=== PATIENT | male | born 1955 | race Caucasian/White ===

== ENCOUNTER 2023-04-16 10:45 | Emergency (ER) | payer MEDICARE, BC ==
[2023-04-16] MEDS ORDERED: Proparacaine 0.5% Opth 15 ML BOT ONE (11:30)
[2023-04-16] MEDS ORDERED: Fluorescein Opthalmic Strip ONE (11:30)
== END 2023-04-16 12:36 | disposition home or self-care (01) ==
LOC: ERS 10:45
DX: Z77.098 Contact with and (suspected) exposure to other hazardous, chiefly nonmedicinal, chemicals (principal); I10 Essential (primary) hypertension
CPT/HCPCS: 99283